=== PATIENT | female | born 1950 | race Caucasian/White ===

== ENCOUNTER 2024-01-17 12:54 | Inpatient (IN) | payer OTHER ==
--- OUTSIDE RECORDS SUMMARY | 2024-01-17 13:00 | XMS REPORT | Continuity of Care Document ---
Author Name Unknown Address [address] [facility] [place] [address] [facility] thconnect Address [address] [facility] [place] [address] Care Team Providers Care Piano Regulator Inspector Name Role Phone Ryder Attending Clinician Ami De Leon Attending Clinician Unavail able Ryder Admitting Clinician Ami De Leon Admitting Clinician Bobo oquendo Payers Payer Name Policy Type Policy Number Effective Date Expirati on Date Source [facility] (MEDICARE REPLACEMENT/[place] GE - PPO) [id number] 2023 00:00:00 Problems Condition Name Condition Details Condition Category Status Onset Date Resolution Date Last Treatment Date Treating Clinician Comments Source Pain of left knee joint Pain of Left Knee Joint Problem Active 09-23 00:00: 00 [facility] Osteoarthr itis of left knee joint Osteoarthr itis of Left Knee Joint Problem Active - 00:00: 00 [facility] Patellofem oral osteoarthr itis Patellofem oral Osteoarthr itis Problem Active 06-04 00:00: 00 [facility] Allergies, Adverse Reactions, Alerts Allergy Name Allergy Type Status Severity Reaction(s) Onset Date Inactive Date Treating Clinician Comments Source codeine DA Active U 03-20 00:00: 00 [facility] CODEINE DA Active U NAUSEA 03-20 00:00: 00 [facility] No Known Contrast Allergie s DA Active U 03-20 00:00: [address] [facility] No Known Food Allergie s DA Active U 03-20 00:00: [address] [facility] No Known Other Allergie s DA Active U 03-20 00:00: 00 [facility] Social History Smoking Status Start Date Stop Date Source Never Smoker [facility] Medications Ordered Medication Name Filled Medication Name Start Date Stop Date Current Medication? Ordering Clinician Indication Dosage Frequency Signature (SIG) Comments Components Source alprazolam 0.25 mg tablet TAKE 1 TABLET BY MOUTH DAILY NEEDED FOR ANXIETY alprazolam 0.25 mg tablet TAKE 1 TABLET BY MOUTH DAILY NEEDED FOR ANXIETY No alprazolam 0.25 mg tablet TAKE 1 TABLET BY MOUTH DAILY NEEDED FOR ANXIETY [facility] atorvastati n 40 mg tablet TAKE 1 TABLET BY MOUTH DAILY AT BEDTIME atorvastati n 40 mg tablet TAKE 1 TABLET BY MOUTH DAILY AT BEDTIME No atorvastat in 40 mg tablet TAKE 1 TABLET BY MOUTH DAILY AT BEDTIME [facility] citalopram 20 mg tablet TAKE 1 TABLET BY MOUTH DAILY citalopram 20 mg tablet TAKE 1 TABLET BY MOUTH DAILY No citalopram 20 mg tablet TAKE 1 TABLET BY MOUTH DAILY [facility] citalopram 40 mg tablet TAKE 1 TABLET BY MOUTH DAILY citalopram 40 mg tablet TAKE 1 TABLET BY MOUTH DAILY No citalopram 40 mg tablet TAKE 1 TABLET BY MOUTH DAILY [facility] metoclopram сергей 10 mg tablet TAKE 3 TABLETS BY MOUTH DIRECTED PER YOUR COLONOSCOPY PREP PACKET metoclopram сергей 10 mg tablet TAKE 3 TABLETS BY MOUTH DIRECTED PER YOUR COLONOSCOPY PREP PACKET No metoclopra mide 10 mg tablet TAKE 3 TABLETS BY MOUTH DIRECTED PER YOUR COLONOSCOP Y PREP PACKET [facility] metoprolol tartrate 25 mg tablet TAKE 1 TABLET BY MOUTH TWICE DAILY metoprolol tartrate 25 mg tablet TAKE 1 TABLET BY MOUTH TWICE DAILY No metoprolol tartrate 25 mg tablet TAKE 1 TABLET BY MOUTH TWICE DAILY [facility] Myrbetriq 50 mg tablet,exte nded release TAKE 1 TABLET BY MOUTH DAILY Myrbetriq 50 mg tablet,exte nded release TAKE 1 TABLET BY MOUTH DAILY No Myrbetriq 50 mg tablet,ext ended release TAKE 1 TABLET BY MOUTH DAILY [facility] omeprazole 40 mg capsule,del ayed release TAKE 1 CAPSULE BY MOUTH DAILY omeprazole 40 mg capsule,del ayed release TAKE 1 CAPSULE BY MOUTH DAILY No omeprazole 40 mg capsule,de layed release TAKE 1 CAPSULE BY MOUTH DAILY [facility] Ozempic 0.25 mg or 0.5 mg (2 mg/3 mL) subcutaneou s pen injector Ozempic 0.25 mg or 0.5 mg (2 mg/3 mL) subcutaneou s pen injector No Ozempic 0.25 mg or 0.5 mg (2 mg/3 mL) subcutaneo us pen injector [facility] promethazin e-DM 6.25 mg-15 mg/5 mL oral syrup TAKE 5 ML BY MOUTH EVERY 6 HOURS FOR COUGH promethazin e-DM 6.25 mg-15 mg/5 mL oral syrup TAKE 5 ML BY MOUTH EVERY 6 HOURS FOR COUGH No promethazi ne-DM 6.25 mg-15 mg/5 mL oral syrup TAKE 5 ML BY MOUTH EVERY 6 HOURS FOR COUGH [facility] Rybelsus 3 mg tablet Rybelsus 3 mg tablet No Rybelsus 3 mg tablet [facility] scopolamine 1 mg over 3 days transdermal patch APPLY 1 PATCH TOPICALLY BEHIND THE EAR EVERY 3 DAYS scopolamine 1 mg over 3 days transdermal patch APPLY 1 PATCH TOPICALLY BEHIND THE EAR EVERY 3 DAYS No scopolamin e 1 mg over 3 days transderma l patch APPLY 1 PATCH TOPICALLY BEHIND THE EAR EVERY 3 DAYS [facility] sodium,pota ssium,mag sulfates 17.5 gram-3.13 gram-1.6 gram oral soln MIX AND DRINK DIRECTED sodium,pota ssium,mag sulfates 17.5 gram-3.13 gram-1.6 gram oral soln MIX AND DRINK DIRECTED No sodium,pot assium,mag sulfates 17.5 gram-3.13 gram-1.6 gram oral soln MIX AND DRINK DIRECTED [facility] Vital Signs Vital Name Observation Time Observation Value Comments S ource Body Weight 2023-09-23 00:00:00 235 [lb_av] [facility] Height 2023-09-23 00:00:00 64 [in_i] [facility] BMI (Body Mass Index) 2023-09-23 00:00:00 40.3 kg/m2 [facility] Procedures Procedure Date / Time Performed Performing Clinicia n Source XR, knee, 1 or 2 view 2023-09-23 00:00:00 [facility] Hysterectomy [facility] Tonsillectomy [facility] Encounters Start Date/Time End Date/Time Encounter Type Admission Type Attending Clinicians Care Facility Care Department Encounter ID Source 2023-12-07 00:00:00 2023-12-07 00:00:00 Outpatient DAILY_Garo Lechuga [facility] A[facility] [id number] [facility] 2023-12-02 00:00:00 2023-12-02 00:00:00 Outpatient ADILY_Garo Lechuga [facility] A[facility] [id number] [facility] 2023-11-21 00:00:00 2023-11-21 00:00:00 Outpatient DAILY_Garo Lechuga [facility] AOSM [id number] [facility] 2023-10-28 00:00:00 2023-10-28 00:00:00 Outpatient DAILY_Garo Lechuga [facility] AOS[facility] [id number] [facility] 2023-10-07 12:00:00 2023-10-07 12:00:00 Outpatient Ami Cisneros [facility] [id number] [address] [facility] 2023-09-23 00:00:00 2023-09-23 00:00:00 Outpatient DAILY_Garo Lechuga AO AO [id number] [facility] 2023-09-23 00:00:00 2023-09-23 00:00:00 SHELBIE Healy: [address] [place] [address] , Ph. [phone] [facility] [place] [facility] [place] [id number] [facility] 2023-09-22 00:00:00 2023-09-22 00:00:00 Outpatient FOG_Garo Lechuga AO AO [id number] [facility] 2023-09-20 00:00:00 2023-09-20 00:00:00 Outpatient FOG_Garo Lechuga AO AO [id number] [facility] 2022-08-20 12:00:00 2022-08-20 12:00:00 Outpatient Ami Cisneros [facility] [id number] [facility] 2021-07-03 12:00:00 2021-07-03 12:00:00 Outpatient Ami Cisneros [id number] [facility] 2021-07-03 12:00:00 2021-07-03 12:00:00 Outpatient Ami Cisneros [facility] [id number] 15 [facility]
--- NOTE | 2024-01-17 14:33 | RAD REPORT ---
EXAM DESCRIPTION: RAD - Chest Pa And Lat (2 Views) - 01/17/2024 2:29 pm CLINICAL HISTORY: chest pain Chest pain. COMPARISON: CHEST PA AND LAT 2 VIEW dated 07/02/2013; CHEST PA AND LAT 2 VIEW dated 04/23/2011 FINDINGS: The lungs are clear. The heart is normal in size. No displaced fractures. Moderate hiatal hernia. IMPRESSION: No acute or concerning finding suspected. Probable hiatal hernia, moderate sized. The USPSTF recommends annual screening for lung cancer with low-dose CT (LDCT) in adults aged 50 to 80 years who have a 20 pack-year smoking history and currently smoke or have quit within the past 15 years.
[2024-01-17 14:51] LABS: Absolute Basophils 0.1 K/uL (0-0.5); Absolute Eosinophils 0.2 K/uL (0-0.5); Absolute Lymphocytes (CBC) 2.5 K/uL (0.7-4.9); Absolute Monocytes 0.8 K/uL (0.1-1.3); Absolute Neutrophil 6.2 K/uL (1.8-8.0); Basophils % 0.8 % (0-1.3); Eosinophils % 1.8 % (0-4.4); Hematocrit 40.8 % (36.0-45.0); Hemoglobin 13.4 g/dL (12.0-15.0); Lymphocytes % 25.3 % (15.3-44.8); MCH 26.9 pg (27.0-35.0); MCHC 32.7 g/dL (32.0-36.0); MCV 82.2 fL (80-100); MPV 8.7 fL (7.6-11.3); Monocytes % 8.1 % (3.3-12.3); Platelets 301 thou/uL (152-406); RBC Red Blood Cell Count 4.97 M/uL (3.86-4.86); Red Cell Distribution Width 14.2 % (12.1-15.2)
[2024-01-17 15:04] VITALS: BMI 40.1
[2024-01-17 15:13] LABS: ALT/SGPT 35 U/L (13-56); AST/SGOT 21 U/L (15-37); Albumin 3.8 g/dL (3.4-5.0); Alkaline Phosphatase 88 U/L (45-117); Anion Gap 8.6 mEq/L (5.0-15.0); BUN Blood Urea Nitrogen 12 mg/dL (7-18); Bicarbonate 26 mEq/L (21-32); Bilirubin Total 0.7 mg/dL (0.2-1.0); Globulin 3.7 g/dL (2.3-3.5); Glomerular Filtration Rate 72 ml/min (=/>90); Glucose Level 101 mg/dL (74-106); Magnesium 2.1 mg/dL (1.6-2.4); Potassium 4.6 mEq/L (3.5-5.1); Protein, Total 7.5 g/dL (6.4-8.2); Sodium Level 136 mEq/L (136-145)
[2024-01-17 15:16] LABS: Troponin High Sensitivity < 3.0 pg/mL (<58.9)
[2024-01-17] MEDS: METOPROLOL XL 25 MG TAB PO ONE (15:33)
[2024-01-17] MEDS: ASPIRIN EC 81 MG TAB PO ONE (15:33)
[2024-01-17] MEDS: ENOXAPARIN 40 MG/0.4 ML SQ SCH (17:12)
--- NOTE | 2024-01-17 19:24 | CON ---
Date of Consultation: 01/17/2024 Reason For Consultation: Chest pain. History Of Present Illness: This 73-year-old female, history of hypertension, dyslipidemia, obesity, acid reflux disease. She was seen at Dr. Page's office today because of new development of chest pa in, pressure like, radiates to the neck and the jaw, started while she was shopping on Tuesday at the mall walking, felt a pressure in upper chest, radiates to the neck and the jaw and lasted about 10 to 15 minutes at rest for it to go away and after that, she felt drained for a good period of time and felt weak about to pass out, then went home. Children recommended that she go to the emergency room, but she did not and that she had another episode yesterday walking out to get a box from the mail an d had the same symptoms, lasted same time, so presented to Dr. Page's office. I discussed the case w ith him over the phone and sounded like she is having a new onset unstable angina and was directly ad mitted for a coronary angiogram. At the present time, she is chest pain free. Past Medical History: As outlined above in the HPI. Medications: Refer to reconciliation sheet for detailed list. Allergies: NO KNOWN DRUG ALLERGIES. Family History: No premature coronary artery disease or cancer. Social History: She does not smoke or drink. Does not use any drugs. Review of Systems: All systems reviewed and they were negative except as mentioned in the HPI. Physical Examination: Vital Signs: Reviewed. Head and Neck: Pupils are equal, reactive to light. Intact eye movements. No JVD. No cervical lym phadenopathy. Neck is supple. Thyroid is not enlarged. Lungs: Clear to auscultation bilaterally. No rhonchi, wheezing, or crackles. No accessory muscle u se. Heart: Regular rate and rhythm. No extra sounds. Abdomen: Soft, nontender. Bowel sounds positive. No organomegaly. No masses or hernia. No rigidi ty or rebound. Extremities: No edema, clubbing, or cyanosis. Intact pulses. Skin: No rash or nodule. Neurologic: Alert, awake, oriented x3. No acute focal deficits appreciated. Investigations: First troponin is less than 3. BUN 12, creatinine 0.85, and TSH is 1.4. Hemoglobin is 13.4. Assessment/recommendation: 1.Chest pain, very typical, suggestive of unstable angina, very concerning pain. We recommend to lo ad with 325 mg aspirin and then 81 mg daily and give her also Lovenox 1 mg/kg subcu q.12 hours, to gi ve her 1 dose tonight and to stop it. Keep her n.p.o. past midnight. We will plan for coronary gabby ogram tomorrow morning and obtain an echocardiogram on her. 2.Dyslipidemia. Continue statin. 3.Hypertension. Blood pressure is borderline elevated. Resume home medications. Discussed the ramila e with Dr. Page. /BRANDONL Voice ID: [id number] Report ID: [id number]
[2024-01-17] MEDS: ATORVASTATIN 40 MG TAB PO SCH (20:19)
[2024-01-17] MEDS: ENOXAPARIN 60 MG/0.6 ML SQ ONE (20:20)
[2024-01-18 04:07] LABS: HDL Cholesterol 34 mg/dL (40-60); LDL Cholesterol, Calculated 63 mg/dL (<130); LDL Cholesterol,Calc NonReport 63
[2024-01-18 04:08] LABS: Troponin High Sensitivity < 3.0 pg/mL (<58.9)
--- NOTE | 2024-01-18 04:45 | HP ---
Date of Admission: 01/17/2024 Chief Complaint: Chest pain. History Of Present Illness: This is a 73-year-old very pleasant female patient, who came into office today with complaints of chest pain. The patient reports having 2 episodes, 1 yesterday and 1 day b efore yesterday of this chest pain that lasted about 5 minutes. She reports that she was just doing her normal activity and just walking around the house to go to the front porch and came back and ther e was nothing strenuous about it and she started to have some pain in neck and then the pain radiated to her both arms with some tingling sensation of her hands and then felt like heaviness type of feel ing in her chest. She also had some associated sweating and this entire episode lasted for about 5 m inutes or so and after that she felt extremely weak. No nausea, vomiting. No shortness of breath. She had similar episode for 2 days in a row and today she came into office. After she was evaluated, decision was made to admit her to hospital as I was concerned about . Allergies: TO CODEINE CAUSING NAUSEA. Medications: She takes alprazolam 0.25 mg daily as needed for anxiety, atorvastatin 40 mg daily at b edtime, citalopram 40 mg daily, metoprolol tartrate 25 mg she takes 1 tablet 2 times a day, Myrbetriq 50 mg daily, omeprazole 40 mg daily, and Ozempic, she takes 0.5 mg subcutaneous injection daily. Review of Systems: Cardiovascular: As mentioned above. All other systems reviewed and negative. Past Medical History: Significant for type 2 diabetes mellitus, hypertension, mixed hyperlipidemia, gastroesophageal reflux disease, diverticulosis, overactive bladder, depression, and osteopenia. Past Surgical History: Significant for lumpectomy for benign breast tumor in 1993, bladder suspensio n, hysterectomy, and arthroscopic knee surgery. Family History: Father had COPD and coronary artery disease. Mother with hypertension. Brother wit h hypertension. Social History: Negative for smoking. Use of alcohol occasional. Physical Examination: Vital Signs: Blood pressure 117/77, pulse 73, temperature 97.7, respiratory rate 16, weight 234.6 po unds, height 64 inches. General: Awake, alert, oriented, not in distress. HEENT: Head atraumatic, normocephalic. Conjunctivae nonerythematous. Sclerae white. Mouth, no thr ush or edema noted. Ears/Nose, no mass, lesion, discharge noted. Neck: Supple. No JVD, lymph nodes, bruit, thyromegaly noted. Lungs: Bilateral good equal air entry. Clear to auscultation. No rhonchi. No rales. Heart: Normal heart sounds, no murmur or gallop. Abdomen: Soft, bowel sounds normal. No guarding, rigidity, tenderness, mass, hepatosplenomegaly, dis tention, or bruit noted. Extremities: No leg edema. No calf tenderness. Skin: No rash, ulcer, cellulitis. Lymphatics: No lymph node enlargement in neck, supraclavicular, infraclavicular region. Neuro: No focal neurological deficit. Chest: Unremarkable. External Genitalia: Deferred. Rectal: Deferred. Laboratory Data: White count 9.8, hemoglobin 13.4, platelets 301. Sodium 136, potassium 4.6, chlori de 106, bicarb 26, BUN 12, creatinine 0.85, glucose 101. Liver function tests unremarkable. Troponi n less than 3. TSH 1.4. Chest x-ray, no acute cardiopulmonary changes. EKG . Impression: 1.Unstable angina. 2.Hypertension. 3.Mixed hyperlipidemia. 4.Type 2 diabetes mellitus. 5.Gastroesophageal reflux disease. 6.Diverticulosis. 7.Overactive bladder. 8.Depression. 9.Osteopenia. Plan: Admit the patient to hospital for further evaluation and management of this problem. The wilfred ent will be admitted to telemetry and we will consult Cardiology Service, Dr. Bonds, who was contact ed and details were discussed with him and he will perform cardiac cath on her tomorrow. Further int ervention will be decided upon findings of cardiac cath tomorrow. All those details were discussed w ith the patient including possibility of finding no abnormality on coronary angiogram, but we are hig hly concerned about coronary artery disease problem. We will go ahead and give her aspirin and Loven ox per order. Metoprolol was ordered and we will continue her atorvastatin that she takes for her hy perlipidemia at bedtime. For diabetes, she takes Ozempic and no need for further intervention on it at this time. We will get a fasting lipid profile done tomorrow morning. Details and plan of treatm ent discussed with her and as per her request, also communicated details with her son on the phone to day. Total time spent minutes. JOSE/BRIAN Voice ID: [id number]
[2024-01-18] MEDS: ASPIRIN EC 81 MG TAB PO ONE (05:16)
[2024-01-18] MEDS: ASPIRIN EC 81 MG TAB PO SCH (05:24)
[2024-01-18] MEDS ORDERED: NA CHLORIDE 0.9% 500 ML ONE (08:49)
[2024-01-18] MEDS ORDERED: VERAPAMIL HCL 10 MG/4 ML VIAL IV ONE (09:32)
[2024-01-18] MEDS ORDERED: HEPA 1000U/500MLS 2,000 UNIT/1,000 ML BAG IV ONE (09:32)
[2024-01-18] MEDS ORDERED: LIDOCAINE 1% 20 ML MDV ONE (09:32)
[2024-01-18] MEDS ORDERED: FENTANYL CITR 100 MCG/2 ML ONE (09:32)
[2024-01-18] MEDS ORDERED: MIDAZOLAM HCL 2 MG/2 ML INJ ONE (09:32)
[2024-01-18] MEDS ORDERED: CLOPIDOGREL 75 MG TABLET ONE (09:33)
[2024-01-18] MEDS ORDERED: HEPARIN 10,000 UNIT/10 ML VIAL IV ONE (09:33)
[2024-01-18] MEDS ORDERED: HEPARIN 5000 UNIT/ML 1 ML VIAL ONE (09:33)
[2024-01-18] MEDS ORDERED: ATROPINE SULF 1 MG/10 ML SYR IV ONE (09:33)
[2024-01-18] MEDS ORDERED: TICAGRELOR 90 MG TABLET PO ONE (09:33)
[2024-01-18] MEDS ORDERED: ASPIRIN 325 MG TAB ONE (09:34)
--- NOTE | 2024-01-18 11:06 | P.PN ---
Subjective Date of Service: 01/18/24 Subjective: No new changes Review of Systems 10-point ROS is otherwise unremarkable Physical Examination - Vital Signs Temperature: 97.9 F Blood Pressure: 117/66 Pulse: 68 Respirations: 16 Pulse Ox (%): 96 - Physical Exam General: Alert, Oriented x3 HEENT: Atraumatic Neck: Supple Respiratory: Clear to auscultation bilaterally Cardiovascular: No edema, Normal S1 S2 Gastrointestinal: Normal bowel sounds - Studies Laboratory Data (last 24 hrs) 01/18/24 01/17/24 01/17/24 03:17 14:37 14:37 WBC 9.80 Hgb 13.4 Hct 40.8 Plt Count 301 Sodium 136 Potassium 4.6 BUN 12 Creatinine 0.85 Glucose 101 Magnesium 2.1 Total Bilirubin 0.7 AST 21 ALT 35 Alkaline Phosphatase 88 Triglycerides 188 H Cholesterol 135 HDL Cholesterol 34 L Cholesterol/HDL Ratio 3.97 Assessment And Plan - Current Problems (Diagnosis) (1) Chest pain Current Visit: Yes Status: Acute Plan: Non cardiac vs microvascular disease. patient had a coronary angiogram done that shows Mil non obstructive CAD. if symptoms persist then consider CCB vs nitrates. (2) HTN (hypertension) Current Visit: Yes Status: Acute Plan: Continue home medications. (3) HLD (hyperlipidemia) Current Visit: Yes Status: Acute Plan: Continue Lipitor 40 mg daily outpatient lipid panel.
--- NOTE | 2024-01-18 12:36 | OP ---
Date of Procedure: 01/18/2024 Surgeon: Ganga Zuñiga Procedure Performed: Selective coronary angiogram. Indication For Procedure: Unstable angina. Complications: None. Estimated Blood Loss: Less than 10 cc. Sedation Time: 20 minutes with 1 of Versed and 50 of fentanyl. Access: Right radial, closed by TR band. Description Of Procedure: After risks, and benefits, and alternatives were explained to the patient, patient agreed to proceed with procedure and signed informed consent. The patient was brought back to the wood and wood products labourer, prepped and draped in sterile fashion. Time-out was performed. Sedation was admini stered. Right radial 6-Sami sheath and micropuncture access was obtained using an ultrasound-guide d technique. [place] 4 catheter was advanced over a J-wire to the aortic root. Selective coronary ang iogram was performed. [place] 4 catheter was removed over a J-wire. Sheath was removed and TR band ap plied. The patient was moved back to recovery in stable condition. Findings: 1.Left main is normal. 2.LAD; mild luminal irregularities. 3.Left circ; mild luminal irregularities. 4.RCA; mild luminal irregularities. Assessment And Plan: Normal coronaries with mild luminal irregularities. The plan will be to contin ue medical management. BLADIMIR/BRIAN Voice ID: [id number] Report ID: [id number]
--- NOTE | 2024-01-18 13:10 | EKG ---
Test Date: 2024-01-17 Test Time: 14:04:22 Mold Cutting Machine Operator: KRYSTIAN MEASUREMENT RESULTS: Intervals: Rate: 68 HI: 160 QRSD: 94 QT: 430 QTc: 457 [place]: P: 44 HI: 160 QRS: 16 T: 31 INTERPRETIVE STATEMENTS: Normal sinus rhythm Normal ECG No previous ECG available for comparison Electronically Signed On 01-18-24 13:06:18 CDT by Benjamín Bonds
[2024-01-18 14:41] VITALS: O2SAT 96
[2024-01-18 15:12] VITALS: BP 121/65; TEMP 98.2
--- NOTE | 2024-01-18 23:44 | DS ---
Date of Discharge: 01/18/2024 Disposition: Discharged to go home. Physical Examination: HEENT: Unremarkable. Lungs: Clear to auscultation. Heart: Sounds normal. Abdomen: Soft. Bowel sounds normal. No guarding, rigidity, tenderness, distention. Extremities: No leg edema. Laboratory Data: Yesterday upon admission, white count 9.8, hemoglobin 13.4, platelets 301. Sodium 136, potassium 4.6, chloride 106, bicarb 26, BUN 12, creatinine 0.85, glucose 101. Liver function te sts unremarkable. Initial troponin less than 3. Second troponin also less than 3. Cholesterol this morning, triglyceride 188, total cholesterol 135, LDL 63, and HDL 34. TSH was 1.4. Hospital Course: This is a 73-year-old pleasant female patient admitted to the hospital with complai nts of chest pain. Please see dictated H and P for more information. The patient came into office y esterday with complaints of pain in her neck radiating to both shoulders and both arms with some ting ling sensation of her hands associated with feeling sweaty and very weak and chest heaviness type of feeling, had 2 episodes, 1 on Tuesday and 1 on Tuesday, so she came into office yesterday and after she was evaluated, decision was made to admit her to the hospital with concerns about unstable angina. Cardiology consultation was requested from Dr. Bonds, and the patient's [place] was ruled out. Cardiolog ist took her to cardiac cath today for coronary angiogram and it showed 20% to 40% stenotic lesion. No evidence of any significant stenosis requiring any intervention. So with that, the patient was di scharged to go home after international banker cleared her. Medically, she was stable for discharge and the patient was discharged with following medications and instructions: 1.Continue all prior home medications. 2.Start aspirin 81 mg 1 tablet by mouth daily. 3.Increase atorvastatin 40 mg, take 2 tablets by mouth daily at bedtime until you run out of current supply, then request prescription for 80 mg daily from office. 4.Follow up at my office next week. 5.Follow with Dr. Zuñiga/Dr. Bonds in 2 weeks. 6.May return to work on 01/23/2024. 7.Do not pull, push, or carry any heavy objects (not to pick anything more than 2 pounds) with your hand for next 2 weeks. Final Diagnoses: 1.Unstable angina. 2.Coronary artery disease. 3.Hypertension. 4.Mixed hyperlipidemia. 5.Type 2 diabetes mellitus. 6.Gastroesophageal reflux disease. 7.Diverticulosis. 8.Overactive bladder. 9.Depression. 10.Osteopenia. Total time spent minutes. JOSE/BRIAN Voice ID: [id number] Report ID: [id number]
== END 2024-01-18 15:48 | disposition home or self-care (01) | DRG 287 ==
LOC: 4TH 12:54
PROVIDERS: ADMIT Internal Medicine; ATTEND Internal Medicine
PROC: B2111ZZ Fluoroscopy of Multiple Coronary Arteries using Low Osmolar Contrast (ICD-10-PCS; principal; 2024-01-18)
DX: I25.110 Atherosclerotic heart disease of native coronary artery with unstable angina pectoris (principal); Z68.41 Body mass index [BMI] 40.0-44.9, adult; I10 Essential (primary) hypertension; E78.2 Mixed hyperlipidemia; E11.9 Type 2 diabetes mellitus without complications; K21.9 Gastro-esophageal reflux disease without esophagitis; K57.90 Diverticulosis of intestine, part unspecified, without perforation or abscess without bleeding; N32.81 Overactive bladder; F32.A Depression, unspecified; M85.80 Other specified disorders of bone density and structure, unspecified site; E66.9 Obesity, unspecified; Z79.899 Other long term (current) drug therapy; Z79.85 Long-term (current) use of injectable non-insulin antidiabetic drugs; Z82.49 Family history of ischemic heart disease and other diseases of the circulatory system
CPT/HCPCS: 36415; 71046; 76937; 80053; 80061; 83735; 84443; 84484; 85025; 93005; 93454; 99152; 99153; C1893; J0461; J1644; J1650; J2001; J2250; J3010; J7040; Q9966